=== PATIENT | female | born 1965 | race Caucasian/White ===

== ENCOUNTER 2021-12-19 10:47 | Emergency (ER) | payer OTHER ==
[2021-12-19 11:10] VITALS: TEMP 98.2
--- NOTE | 2021-12-19 11:17 | ED ---
Back Pain HPI - General Chief Complaint: Back Pain/Injury Stated Complaint: Back pain Time Seen by Provider: 12/19/21 11:06 - History of Present Illness Initial Comments: Patient is a 56 year female presented to the ER with complaints of worsening of chronic lower back pain with radiculopathy to the right leg down to the knee anterior. She reports symptoms are similar to previous event when she was identified with herniated disc and completed physical therapy which helped. She does note she stumbled 3 days ago and 24-48 hours later pain started. She denies any ROM impairment or weakness not limited by pain; she denies any focal neurological deficits, bowel or bladder incontinence, saddle parethesia or other concerns for cauda equina. She received fentanyl from EMS with good response to pain. 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 - Related Data Previous Rx's Medication Instructions Recorded Cyclobenzaprine HCl 10 mg PO TID PRN #21 tab 12/19/21 methylPREDNISolone Dose Pack 4 mg PO DIRECTED #21 tab 12/19/21 [Medrol Dose Pack] Allergies Allergy/AdvReac Type Severity Reaction Status Date / Time acetaminophen [From [place]] AdvReac Nausea Verified 12/19/21 11:10 hydrocodone [From [place]] AdvReac Nausea Verified 12/19/21 11:10 Review of Systems ROS Statement: Those systems with pertinent positive or pertinent negative responses have been documented in the HPI. ROS Other: All systems not noted in ROS Statement are negative. Course Vital Signs 12/19/21 12/19/21 12/19/21 11:06 12:48 15:57 Temperature 98.2 F Pulse Rate 105 H 100 100 Respiratory 20 22 18 Rate Blood Pressure 189/92 150/80 191/74 O2 Sat by Pulse 97 96 96 Oximetry Medical Decision Making - Medical Decision Making 56-year-old female presents to the emergency room with complaints of flare of chronic lower back pain with radiculopathy to right leg. No new trauma. Will check x-ray of the lumbar spine. Will give muscle relaxer and Solu-Medrol to evaluate response. No indication for laboratory studies. Some mild improvement on muscle relaxer and Solu-Medrol. Will give dose of morphine IV as she has a right home and does not have to drive to today. X-ray without acute findings. Will discharge home with oral steroid and muscle relaxer. Range of motion as tolerated encouraged. Avoid heavy lifting. Advised to follow-up with her primary care provider. Return to the emergency room parameters discussed. Case discussed with Dr. Saucedo. - Radiology Data Radiology results: image reviewed Interpreted by me: X-ray of lumbar spine without any acute fractures or vertebral dislocation. Official radiology report pending Disposition Clinical Impression: Lumbar radiculopathy, Strain of lumbar region Disposition: HOME SELF-CARE Condition: Stable Instructions (If sedation given, give patient instructions): Low Back Strain (ED), Lumbar Radiculopathy (ED) Additional Instructions: Please complete course of steroids and utilize muscle relaxant as needed. Avoid heavy lifting. Range of motion as tolerated encouraged. Please follow-up with your primary care provider. Please return to the Emergency Department if symptoms worsen or any other concerns. Prescriptions: Cyclobenzaprine HCl 10 mg PO TID PRN #21 tab PRN Reason: Muscle Spasm methylPREDNISolone Dose Pack [Medrol Dose Pack] 4 mg PO DIRECTED #21 tab Is patient prescribed a controlled substance at d/c from ED?: No Referrals: Ileana Hernandez DO [Primary Care Provider] - 1-2 days Time of Disposition: 15:25
[2021-12-19] MEDS ORDERED: CYCLOBENZAPRINE 10 MG TAB PO STA (11:18)
[2021-12-19] MEDS ORDERED: methylPREDNISolone SOD SUCCI 125 MG/2 ML VIAL IM ONE (11:18)
[2021-12-19 12:51] VITALS: PULSE 100
[2021-12-19] MEDS ORDERED: MORPHINE SULFATE 4 MG/ML SYRINGE IVP STA (15:40)
[2021-12-19 16:05] VITALS: BP 191/74; RESP 18
--- NOTE | 2021-12-19 18:55 | XR ---
EXAM: XR Lumbosacral Spine, 4 or 5 Views CLINICAL HISTORY: ITS. REASON XR Reason: pain TECHNIQUE: Frontal, lateral and bilateral oblique views of the lumbar spine. COMPARISON: No relevant prior studies available. FINDINGS: Vertebrae: No acute fracture. Mild thoracolumbar levocurvature. Grade 1 L4 retrolisthesis. Sacrum/coccyx: Unremarkable as visualized. No acute fracture. Disc spaces: Mild degenerative endplate spurring. Disc space heights are well-maintained. Soft tissues: Cholecystectomy clips. IMPRESSION: Mild thoracolumbar levocurvature with grade 1 L4 retrolisthesis. Mild degenerative endplate spurring. Disc space heights are well- maintained.
== END 2021-12-19 16:05 | disposition home or self-care (01) ==
LOC: EC 10:47
DX: S39.012A Strain of muscle, fascia and tendon of lower back, initial encounter (principal); M54.16 Radiculopathy, lumbar region; E11.9 Type 2 diabetes mellitus without complications; I10 Essential (primary) hypertension; E78.5 Hyperlipidemia, unspecified; Z88.6 Allergy status to analgesic agent; Z88.5 Allergy status to narcotic agent; W18.40XA Slipping, tripping and stumbling without falling, unspecified, initial encounter
CPT/HCPCS: 72110; 99285; 96374; 96372; J2270; J2930